=== PATIENT | male | born 1985 | race Caucasian/White ===

== ENCOUNTER 2017-07-25 21:29 | Emergency (ER) | payer OTHER ==
--- NOTE | 2017-07-25 22:12 | ED Physician Documentation ---
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 No: Cardiac arrest, Resp depression, Resp arrest, Unresponsive, Decreased responsiveness, Altered mental status, Agitated, Combative, Hallucinations, Chest pain, Abdominal pain, Palpitations, Dyspnea, Diaphoresis, Other Pain level now: 0 Recently seen: Not recently seen - Additional information Additional information: per patient, had a long day, everything that could have gone wrong went wrong , very tired. when I ask about the overdose and texts indicated in nurses triage note, he confirms these. He tells me he took approximately 30 tablets hydroxyzine (10mg per tablet), and admits to texting to s.o. its not your fault. denies h/o SI or self-harm. Review of Systems Eyes: denies: Decreased vision Cardiac: reports: Reviewed and negative Respiratory: reports: Reviewed and negative GI: reports: Reviewed and negative Neurologic: reports: Reviewed and negative Psychiatric: reports: Depressed, Suicidal. denies: Homicidal, Hallucinations, Delusions PD PAST MEDICAL HISTORY - Past Medical History Past Medical History: Yes Cardiovascular: None Respiratory: None Neuro: None Endocrine/Autoimmune: None GI: None : None HEENT: None Psych: Depression, Anxiety Musculoskeletal: None Derm: None Other Past Medical History: HAS NHON COUNSELOR/ PSYCHIATRIST/ PSYCHOLOGIST... - Past Surgical History Past Surgical History: No - Allergies Allergies/Adverse Reactions: Allergies Allergy/AdvReac Type Severity Reaction Status Date / Time No Known Drug Allergies Allergy Verified 07/25/17 21:54 - Social History Does the pt smoke?: Yes Smoking Status: Current every day smoker Does the pt drink ETOH?: No Does the pt have substance abuse?: No - Immunizations Immunizations are current?: Yes - POLST Patient has POLST: No PD ED PE NORMAL - Vitals Vital signs reviewed: Yes - General General: Alert and oriented X 3, No acute distress, Well developed/nourished - HEENT HEENT: PERRL, EOMI, Moist mucous membranes - Cardiac Cardiac: RRR, No murmur, No gallop, No rub - Respiratory Respiratory: No respiratory distress, Clear bilaterally - Abdomen Abdomen: Normal bowel sounds, Soft, Non tender - Derm Derm: Normal color, Warm and dry - Neuro Neuro: Alert and oriented X 3, 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, No motor deficit, No sensory deficit, Normal speech - Psych Psych: Normal mood, Normal affect Results - Vitals Vitals: Vital Signs - 24 hr 07/26/17 07/26/17 07/26/17 01:51 02:34 03:05 Heart Rate 64 63 69 Respiratory 15 15 17 Rate Blood Pressure 105/69 98/65 109/59 L O2 Saturation 98 96 96 07/26/17 07/26/17 07/26/17 03:18 04:30 05:22 Heart Rate 62 66 Respiratory 17 15 15 Rate Blood Pressure 100/72 O2 Saturation 97 96 07/26/17 07/26/17 07/26/17 06:03 07:35 08:55 Heart Rate 64 72 76 Respiratory 15 15 14 Rate Blood Pressure 110/83 H 114/85 H 125/85 H O2 Saturation 98 97 98 Oxygen O2 Source Room air - EKG (time done) No standard instances Rate: Rate (enter#) (60) Rhythm: NSR [place]: Normal Intervals: Normal [place] QRS: Normal Ischemia: Normal ST segments - Labs Labs: Laboratory Tests 07/25/17 07/25/17 07/25/17 22:00 22:10 22:22 WBC 12.2 H RBC 4.77 Hgb 14.6 Hct 43.0 MCV 90.1 MCH 30.6 MCHC 33.9 RDW 13.7 Plt Count 280 MPV 7.8 Neut # 6.2 Lymph # 4.5 H [place] # 1.2 H Eos # 0.3 Baso # 0.0 Absolute Nucleated RBC 0.00 Nucleated RBC % 0.0 Sodium Potassium Chloride Carbon Dioxide Anion Gap BUN Creatinine Estimated GFR (MDRD) Glucose Calcium Urine Color YELLOW Urine Clarity CLEAR Urine pH 6.0 Ur Specific [place] 1.010 Urine Protein NEGATIVE Urine Glucose (UA) NEGATIVE Urine Ketones NEGATIVE Urine Occult Blood NEGATIVE Urine Nitrite NEGATIVE Urine Bilirubin NEGATIVE Urine Urobilinogen 0.2 (NORMAL) Ur Leukocyte Esterase NEGATIVE Ur Microscopic Review NOT INDICATED Urine Culture Comments NOT INDICATED Salicylates Urine Opiates Screen NEGATIVE Ur Oxycodone Screen NEGATIVE Urine Methadone Screen NEGATIVE Ur Propoxyphene Screen NEGATIVE Acetaminophen Ur Barbiturates Screen NEGATIVE Ur Tricyclics Screen POSITIVE H Ur Phencyclidine Scrn NEGATIVE Ur Amphetamine Screen NEGATIVE U Methamphetamines Scrn NEGATIVE U Benzodiazepines Scrn POSITIVE H Urine Cocaine Screen NEGATIVE U Cannabinoids Screen NEGATIVE Ethyl Alcohol 07/25/17 22:22 WBC RBC Hgb Hct MCV MCH MCHC RDW Plt Count MPV Neut # Lymph # [place] # Eos # Baso # Absolute Nucleated RBC Nucleated RBC % Sodium 136 Potassium 3.6 Chloride 99 L Carbon Dioxide 28 Anion Gap 9.0 BUN 7 Creatinine 1.1 Estimated GFR (MDRD) 77 L Glucose 101 H Calcium 9.3 Urine Color Urine Clarity Urine pH Ur Specific [place] Urine Protein Urine Glucose (UA) Urine Ketones Urine Occult Blood Urine Nitrite Urine Bilirubin Urine Urobilinogen Ur Leukocyte Esterase Ur Microscopic Review Urine Culture Comments Salicylates < 6.0 Urine Opiates Screen Ur Oxycodone Screen Urine Methadone Screen Ur Propoxyphene Screen Acetaminophen < 10 L Ur Barbiturates Screen Ur Tricyclics Screen Ur Phencyclidine Scrn Ur Amphetamine Screen U Methamphetamines Scrn U Benzodiazepines Scrn Urine Cocaine Screen U Cannabinoids Screen Ethyl Alcohol < 5.0 PD MEDICAL DECISION MAKING - ED course Complexity details: reviewed results, re-evaluated patient, considered differential, d/w patient ED course: I discussed this case with LARISA; she opines that, despite my concern that patient is unsafe for discharge at this time, he is voluntary since he is not refusing treatment. He expresses to me that he feels further emergent stay is unnecessary and that he wants to be discharged home, and I explained this to LARISA. LARISA refused to dispatch [facility] and thus patient held in ED until SW available in AM. Departure - Departure Disposition: 01 Home, Self Care Clinical Impression: Depression, Medication overdose Condition: Good Instructions: ED Depression, ED Overdose Intentional Follow-Up: ARLETTE Brooks [Provider Group] Comments: Follow up with your psychiatrist this morning as scheduled Discharge Date/Time: 07/26/17 08:57
[2017-07-25 22:28] LABS: BASOPHILS % (AUTO) 0.3 %; EOSINOPHILS # (AUTO) 0.3 10^3/uL (0.0-0.7); EOSINOPHILS % (AUTO) 2.1 %; HGB - HEMOGLOBIN 14.6 g/dL (14.0-18.0); LYMPHOCYTES # (AUTO) 4.5 10^3/uL (1.5-3.5); LYMPHOCYTES % (AUTO) 37.3 %; MEAN CORPUSCULAR HEMOGLOBIN 30.6 pg (27.0-31.0); MEAN CORPUSCULAR HGB CONC 33.9 g/dL (32.0-36.0); MEAN CORPUSCULAR VOLUME 90.1 fL (80.0-94.0); MEAN PLATELET VOLUME 7.8 fL (7.4-11.4); MONOCYTES # (AUTO) 1.2 10^3/uL (0.0-1.0); MONOCYTES % (AUTO) 9.7 %; NEUTROPHILS # (AUTO) 6.2 10^3/uL (1.5-6.6); NEUTROPHILS % (AUTO) 50.6 %; RED BLOOD COUNT 4.77 10^6/uL (4.70-6.10); RED CELL DISTRIBUTION WIDTH 13.7 % (12.0-15.0); UNCORRECTED WHITE BLOOD COUNT 12.2 x10^3/uL; WHITE BLOOD COUNT 12.2 x10^3/uL (4.8-10.8)
[2017-07-25 22:40] LABS: BUN - BLOOD UREA NITROGEN 7 mg/dL (6-20); CALCIUM 9.3 mg/dL (8.5-10.3); CARBON DIOXIDE - CO2 28 mmol/L (21-32); CHLORIDE 99 mmol/L (101-111); CREATININE 1.1 mg/dL (0.6-1.2); GFR - MDRD 77 (>89); GLUCOSE 101 mg/dL (70-100); POTASSIUM 3.6 mmol/L (3.5-5.0); SALICYLATE < 6.0 mg/dL; SODIUM 136 mmol/L (135-145)
[2017-07-25 22:51] LABS: ACETAMINOPHEN < 10 ug/mL (10-30)
[2017-07-26 00:33] LABS: BILIRUBIN,URINE NEGATIVE (NEGATIVE)
[2017-07-26 00:34] LABS: UA CHARGE (STRIP ONLY) YES; UR CULTURE IF IND NOT INDICATED
[2017-07-26 08:56] VITALS: BP 125/85
== END 2017-07-26 08:57 | disposition home or self-care (01) ==
LOC: ED 21:29
DX: F32.9 Major depressive disorder, single episode, unspecified (principal); T43.591A Poisoning by other antipsychotics and neuroleptics, accidental (unintentional), initial encounter; F17.200 Nicotine dependence, unspecified, uncomplicated
CPT/HCPCS: 36415; 80048; 80306; 80307; 80320; 80329; 81001; 81003; 85025; 87086; 93005; 99284; 99285